=== PATIENT | female | born 1970 | race Caucasian/White ===

== ENCOUNTER 2018-11-02 06:17 | Inpatient (IN) | payer OTHER ==
[2018-10-30 16:06] VITALS: Ht 157.5 cm; Wt 97.7 kg
[2018-11-02] VITALS (29 sets, daily range): BP systolic 89–119; BP diastolic 51–70; PULSE 56–88; RESP 10–34
[~2018-11-02] VITALS: Ht 157.5 cm; Wt 97.7 kg
[~2018-11-02 06:17] MED LIST: CEFAZOLIN 2 GM/50 ML (PMX) 50 ML IVPB SCH
[2018-11-02] MEDS ORDERED: IBUP-1541 PO (07:01)
--- NOTE | 2018-11-02 07:14 | PREOPHP ---
DATE OF ADMISSION: 11/02/2018 The patient is coming for surgery on Friday, the . HISTORY OF PRESENT ILLNESS: This is a 48-year-old female, 0 para 0. The patient was referre d to me due to a consultation for a very large fibroid uterus. The patient had a history of fibroids for a long time and she was having a worsening of her symptoms lately with extreme growth of the fib roid that is up to her navel. The patient is having a history of heavy bleeding, pelvic pain, and ba ck pain. An endometrial biopsy was done and was negative and the patient was referred to me for exci dipika of the large fibroid. The patient was advised for a hysterectomy since she is 48 years old and she is not interested in having children. PAST MEDICAL HISTORY: Unremarkable except for anemia and prediabetes. PAST SURGICAL HISTORY: The patient has no surgical history. ALLERGIES: SHE IS ALLERGIC TO SOME NARCOTICS AND SHE IS NOT SURE WHICH ONE. MEDICATION: The patient is on Motrin. FAMILY HISTORY: There is family history for colon cancer on her brother, hypertension, heart attacks , strokes and diabetes on her family side. REVIEW OF SYSTEMS: There is no cardiovascular history. No lung history. She has no GI or neurologi stanton, orthopedic symptoms, endocrine or neurological symptoms. SOCIAL HISTORY: She smokes a pack a week for the last five years and she drinks occasionally. There is no history of drug addiction. PHYSICAL EXAMINATION: VITAL SIGNS: She is 5 feet 2 inches and she weighs 224 pounds. She has morbid obesity. The blood p ressure is 137/90, pulse 80, respirations 16. HEAD AND NECK: Normal. BREASTS: Soft, nontender, no masses. CHEST: Clear. HEART: Normal sinus rhythm. LUNGS: Clear. ABDOMEN: With the uterus that is at the level of the umbilicus. An MRI done revealed that the uteru s was the growth that she has at the level of the umbilicus and the adnexa were not seen. EXTREMITIES: Normal. GENITOURINARY: The patient had some constipation and she has no urinary incontinence. DIAGNOSES: 1. Intractable pelvic pain. 2. Back pain. 3. Intractable menometrorrhagia. 4. Giant fibroid uterus. 5. Perimenopausal syndrome. PLAN: She is undergoing a hysterectomy, possible bilateral salpingo-oophorectomy only in case of end ometriosis or in case of malignancy. The patient has been advised for this procedure. She has been advised of the possible risks and possible complications of the procedure with her alternatives and o ptions. Written information was provided. She had no more questions and agrees to go ahead with the procedure with full understanding and no more questions. Dictated By: DAVID HUBBARD/BRENDEN Conf#: [id number] DID#: [id number]
--- NOTE | 2018-11-02 07:28 | PREAC ---
Date/Time of Note Date/Time of Note DATE: 11/02/18 TIME: 07:27 Anesthesia Eval and Record Evaluation Time Pre-Procedure Interview DATE: 11/02/18 TIME: 07:27 Age 48 Sex female NPO: 8 hrs Preoperative diagnosis uterine fibroids Planned procedure DAMION Past Medical History Past Medical History: Includes Cardio: Dyslipidemia GI: Morbid obesity Surgery & Anesthesia Issues No known issue Meds Anticoagulation: No Beta Freya within 24 hr: No Reason Beta Freya not given: Pt. not on B-Freya Reported Medications Ibuprofen* (Ibuprofen*) 400 Mg Tablet, 400 MG PO DAILY PRN for PAIN, TAB 11/02/18 Current Medications Cefazolin Sodium/ Dextrose 50 ml @ 100 mls/hr PREOP IVPB ; Start 11/02/18 at 06:00; Stop 11/02/18 at 16:00 Meds reviewed: Yes Allergies Coded Allergies: acetaminophen (Verified Allergy, Unknown, vomiting ,rash, 10/30/18) hydrocodone (Verified Allergy, Unknown, vomiting ,rash, 10/30/18) Allergies Reviewed: Yes Labs/Studies Labs Reviewed: Reviewed by anesthesiologist Blood Bank Test 11/02/18 00:00 Blood Product Summary Counts test: Negative Studies: ECG (NL), CXR (NAPD) Pre-procedure Exam Last vitals Vital Signs Date Temp Pulse Resp B/P (MAP) Pulse Ox O2 O2 Flow FiO2 Time Delivery Rate 11/02/18 97.4 72 20 119/53 97 Room Air 07:25 (75) Airway: Adequate mouth opening, Adequate thyromental dist Mallampati: Mallampati II Teeth: Normal Lung: Normal Heart: Normal ASA Physical Status ASA physical status: 3 Emergency: None Planned Anesthetic General/MAC: ETT Planned Pain Management Parenteral pain med Pre-operative Attestations Prior to commencing anesthesia and surgery, the patient was re-evaluated, there was verification of: *The patient's identity *The results of appropriate recent lab work and preoperative vital signs *The above evaluation not changing prior to induction *Anesthetic plan, risk benefits, alternative and complications discussed with patient/family; questions answered; patient/family understands, accepts and wishes to proceed. Kvng Liao M.D. Nov 02, 2018 07:28
[2018-11-02] MEDS ORDERED: hydrALAzine 20 MG INJ IV PRN ×2 (07:30→10:30)
[2018-11-02] MEDS ORDERED: CEFAZOLIN 1 GM INJ ONE (07:30)
[2018-11-02] MEDS ORDERED: HYDROmorphONE 1 MG/5 ML IV SYRINGE IV PRN ×6 (07:30→10:30)
[2018-11-02] MEDS ORDERED: ALBUTEROL 0.083% (NEB) 2.5 MG/3 ML AMP HHN PRN ×2 (07:30→10:30)
[2018-11-02] MEDS ORDERED: NALOXONE (0.4 MG/ML) INJ IV PRN (07:30)
[2018-11-02] MEDS ORDERED: IPRATROPIUM (NEB) 0.5 MG/2.5 ML AMP HHN PRN ×2 (07:30→10:30)
[2018-11-02] MEDS ORDERED: KETOROLAC 30 MG INJ IV PRN (07:30)
[2018-11-02] MEDS ORDERED: EPHEDrine SULFATE 50 MG/5 ML SYG IV PRN ×2 (07:30→10:30)
[2018-11-02] MEDS ORDERED: LABETALOL HCL 20MG INJ IV PRN ×2 (07:30→10:30)
[2018-11-02] MEDS ORDERED: NALBUPHINE HCL (10 MG/1 ML) INJ IV PRN (07:30)
[2018-11-02] MEDS ORDERED: ROCURONIUM 50 MG INJ ONE (07:30)
[2018-11-02] MEDS ORDERED: TRIMETHOBENZAMIDE 100 MG/ML VIAL IM PRN ×3 (07:30→10:30)
[2018-11-02] MEDS ORDERED: MEPERIDINE 25 MG INJ IV PRN ×2 (07:30→10:30)
[2018-11-02] MEDS ORDERED: GLYCOPYRROLATE 0.4 MG INJ ONE (07:30)
[2018-11-02] MEDS ORDERED: ZOLPIDEM 5 MG TAB PO PRN ×2 (07:30→10:30)
[2018-11-02] MEDS ORDERED: PROPOFOL 20 ML ONE (07:30)
[2018-11-02] MEDS ORDERED: FENTAnyl 50 MCG/ML VIAL IV PRN ×6 (07:30→10:30)
[2018-11-02] MEDS ORDERED: MIDAZOLAM 1 MG/ML 2 ML INJ IV PRN ×2 (07:30→10:30)
[2018-11-02] MEDS ORDERED: morphine 2 MG INJ IV PRN ×2 (07:30)
[2018-11-02] MEDS ORDERED: ONDANSETRON 4 MG INJ IV PRN ×3 (07:30→10:30)
[2018-11-02] MEDS ORDERED: DIPHENHYDRAMINE 50 MG INJ IV PRN ×3 (07:30→10:30)
[2018-11-02] MEDS ORDERED: DEXAMETHASONE 4 MG/ML 5 ML INJ ONE (07:34)
[2018-11-02] MEDS ORDERED: FENTAnyl 50 MCG/ML VIAL ONE (07:34)
[2018-11-02] MEDS ORDERED: ONDANSETRON 4 MG INJ ONE (07:34)
[2018-11-02] MEDS ORDERED: MIDAZOLAM 1 MG/ML 2 ML INJ ONE (07:34)
[2018-11-02] MEDS ORDERED: morphine SULFATE/PF (10 MG/10 ML) INJ ONE (07:34)
[2018-11-02] MEDS ORDERED: SUGAMMADEX SODIUM 200 MG/2 ML VIAL IV ONE (09:46)
--- NOTE | 2018-11-02 10:25 | SIPON ---
Date/Time of Note Date/Time of Note DATE: 11/02/18 TIME: 10:24 Operative Report Preoperative Diagnosis Giant fibroid uterus 20 weeks size Intractable menometrorrhagia and anemia Intractable pelvic pain and back pain Prediabetes Postoperative Diagnosis Same Operation/Procedure Performed DAMION bilateral salpingectomy Surgeon see signature line communication assistant DR ZUNIGA Anesthesia: general Estimated blood loss: 100 - 150 ml's Transfusion Required none Specimen Uterus tubes and cervix Grafts/Implants none Complications none DAVID STRANGE MD Nov 02, 2018 10:25
[2018-11-02] MEDS ORDERED: traMADol 50 MG TAB GTB PRN (10:30)
[2018-11-02] MEDS ORDERED: ONDANSETRON INJ 6 MG in DEXTROSE 5% 50 ML IVPB PRN (10:30)
[2018-11-02] MEDS ORDERED: DIPHENHYDRAMINE 50 MG CAP PO PRN (10:30)
--- NOTE | 2018-11-02 10:37 | PAC ---
Date/Time of Note Date/Time of Note DATE: 11/02/18 TIME: 10:37 Post-Anesthesia Notes Post-Anesthesia Note Last documented vital signs Vital Signs Date Temp Pulse Resp B/P (MAP) Pulse Ox O2 O2 Flow FiO2 Time Delivery Rate 11/02/18 98.8 10:07 11/02/18 72 20 119/53 97 Room Air 07:25 (75) Activity: WNL Respiratory function: WNL Cardiovascular function: WNL Mental status: Baseline Pain reasonably controlled: Yes Hydration appropriate: Yes Nausea/Vomiting absent: Yes Kvng Liao M.D. Nov 02, 2018 10:37
[2018-11-02] MEDS: METOCLOPRAMIDE 10 MG TAB PO SCH ×2 (11:59→18:02)
[2018-11-02] MEDS: KETOROLAC 30 MG INJ IV SCH ×2 (11:59→18:02)
[2018-11-02] MEDS: LACTATED RINGER'S 1,000 ML IV SCH ×2 (12:00→20:11)
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
[2018-11-02] MEDS: CEFAZOLIN 1 GM/50 ML (PMX) 50 ML IVPB SCH ×2 (14:41→21:18)
[2018-11-02] MEDS: ENOXAPARIN 30 MG/0.3 ML SYG SC SCH (21:21)
[2018-11-03] MEDS: LACTATED RINGER'S 1,000 ML IV SCH ×2 (04:18→10:04)
[2018-11-03 04:41] VITALS: BP 92/50; PULSE 69; RESP 18
[2018-11-03] MEDS: CEFAZOLIN 1 GM/50 ML (PMX) 50 ML IVPB SCH (05:34)
[2018-11-03] MEDS: KETOROLAC 30 MG INJ IV SCH ×4 (05:36→17:51)
[2018-11-03] MEDS: METOCLOPRAMIDE 10 MG TAB PO SCH ×5 (05:36→23:09)
[2018-11-03 08:01] VITALS: BP 98/55; PULSE 74; RESP 18
[2018-11-03] MEDS: ENOXAPARIN 30 MG/0.3 ML SYG SC SCH ×2 (11:02→23:09)
--- NOTE | 2018-11-03 11:20 | PN ---
Date/Time of Note Date/Time of Note DATE: 11/03/18 TIME: : Assessment/Plan Lines/Catheters IV Catheter Type (from Nrsg): Peripheral IV Bailey in Place (from Nrsg): Yes Subjective 24 Hr Interval Summary Day 1 post exploratory laparotomy and DAMION BS Patient is up and ambulating Doing really well Passing gases Afebrile, incision dry Patient was explained about her findings and she is very happy with the outcome. Encouraged ambulation Constitutional: no complaints, improved, ambulates, BM, flatus, urine output Feeding: advancing diet Pain Control: mild Detailed Summary Eyes: no complaints ENT: no complaints Respiratory: no complaints Cardiovascular: no complaints Gastrointestinal: no complaints Genitourinary: no complaints Musculoskeletal: no complaints Skin: no complaints Neurologic: no complaints Endocrine: no complaints Lymphatic: no complaints Psychological: no complaints, nl mood/affect Immunologic: no complaints Exam/Review of Systems Vital Signs Vitals Vital Signs Date Temp Pulse Resp B/P (MAP) Pulse Ox O2 O2 Flow FiO2 Time Delivery Rate 11/03/18 98.8 74 18 98/55 (69) 100 08:01 11/02/18 Nasal 2.0 20:00 Cannula Intake and Output 11/02/18 11/02/18 11/03/18 1515:00 23:00 07:00 IntakeIntake Total 3000 ml 1300 ml 1387 ml OutputOutput Total 310 ml 450 ml BalanceBalance 2690 ml 850 ml 1387 ml Exam Constitutional: alert, oriented, well developed Psych: no complaints, nl mood/affect Head: normocephalic, atraumatic Eyes: nl conjunctiva, EOMI, nl lids, nl sclera ENMT: nl external ears & nose, nl lips & teeth, nl nasal mucosa & septum, mucosa pink and moist Neck: supple, non-tender Respiratory: clear to auscultation, normal air movement Cardiovascular: regular rate and rhythm, nl pulses Gastrointestinal: soft, nl liver, spleen, non-tender Musculoskeletal: nl extremities to inspection, nl gait and stance Extremities: normal pulses Neurological: CHECKMAN II-XII intact, nl mental status, nl speech, nl strength Skin: nl turgor, rash or lesions Lymph: nl lymph nodes Results Result Diagram: 11/03/18 0441 11/03/18 044 DAVID STRANGE MD Nov 03, 2018 11:20
[2018-11-03 14:22] VITALS: BP 106/56; PULSE 76; RESP 18
[2018-11-03] MEDS ORDERED: CEPASTAT LOZENGE MT PRN (18:30)
[2018-11-03] MEDS ORDERED: traMADol 50 MG TAB PO PRN ×2 (20:00→22:30)
[2018-11-03] MEDS: oxyCODONE 15 MG TAB PO PRN (20:02)
[2018-11-03 20:30] VITALS: BP 120/60; PULSE 94; RESP 18
[2018-11-04] MEDS: oxyCODONE 15 MG TAB PO PRN ×2 (02:02→08:03)
[2018-11-04 02:35] VITALS: BP 115/59; PULSE 96; RESP 18
[2018-11-04] MEDS: METOCLOPRAMIDE 10 MG TAB PO SCH ×3 (06:00→15:40)
[2018-11-04 07:53] VITALS: BP 104/60; PULSE 105; RESP 18
[2018-11-04] MEDS: ENOXAPARIN 30 MG/0.3 ML SYG SC SCH ×2 (08:19→20:57)
[2018-11-04] MEDS ORDERED: oxyCODONE 15 MG TAB PO PRN (09:00)
[2018-11-04] MEDS ORDERED: BISACODYL (EC) 5 MG TAB PO ONE (09:00)
--- NOTE | 2018-11-04 09:57 | PN ---
Date/Time of Note Date/Time of Note DATE: 11/04/18 TIME: 09:56 Assessment/Plan Lines/Catheters IV Catheter Type (from Nrsg): Saline Lock Bailey in Place (from Nrsg): No Subjective 24 Hr Interval Summary Day 2 post exploratory laparotomy Doing well afebrile With incisional pain Passing gases and tolerating full liquids OxyContin placed in every 5 hours as needed Encouraged ambulation Incision healing well Constitutional: improved Feeding: advancing diet Pain Control: moderate Detailed Summary Eyes: no complaints ENT: no complaints Respiratory: no complaints Cardiovascular: no complaints Gastrointestinal: no complaints Genitourinary: no complaints Musculoskeletal: no complaints Skin: no complaints Neurologic: no complaints Endocrine: no complaints Lymphatic: no complaints Psychological: no complaints, nl mood/affect Immunologic: no complaints Exam/Review of Systems Vital Signs Vitals Vital Signs Date Temp Pulse Resp B/P (MAP) Pulse Ox O2 O2 Flow FiO2 Time Delivery Rate 11/04/18 99.0 105 18 104/60 93 07:53 (75) 11/02/18 Nasal 2.0 20:00 Cannula Intake and Output 11/03/18 11/03/18 11/04/18 1515:00 23:00 07:00 IntakeIntake Total 775 ml 440 ml OutputOutput Total 850 ml BalanceBalance 775 ml -410 ml Exam Constitutional: alert, oriented, well developed Psych: no complaints, nl mood/affect Head: normocephalic, atraumatic Eyes: nl conjunctiva, EOMI, nl lids, nl sclera ENMT: nl external ears & nose, nl lips & teeth, nl nasal mucosa & septum, mucosa pink and moist Neck: supple, non-tender Respiratory: clear to auscultation, normal air movement Cardiovascular: regular rate and rhythm, nl pulses Gastrointestinal: soft, nl liver, spleen, non-tender Musculoskeletal: nl extremities to inspection, nl gait and stance Extremities: normal pulses Neurological: ETL APPLICATION DEVELOPER II-XII intact, nl mental status, nl speech, nl strength Skin: nl turgor, rash or lesions Lymph: nl lymph nodes Results Result Diagram: 11/03/1844011/03/18 044 DAVID STRANGE MD Nov 04, 2018 09:57
[2018-11-04] MEDS: KETOROLAC 30 MG INJ IV PRN ×2 (12:49→18:52)
[2018-11-04] MEDS ORDERED: SOD FERRIC GLUC COMPLX 125 MG in SOD CHLORIDE 0.9% 100 ML IVPB SCH (13:00)
[2018-11-04 13:32] VITALS: BP 104/56; PULSE 99; RESP 18
[2018-11-04 19:15] VITALS: BP 121/68; PULSE 101; RESP 20
[2018-11-05] MEDS: KETOROLAC 30 MG INJ IV PRN ×2 (00:59→07:49)
[2018-11-05 02:05] VITALS: BP 99/54; PULSE 85; RESP 20
[2018-11-05] MEDS: METOCLOPRAMIDE 10 MG TAB PO SCH ×2 (07:49)
[2018-11-05 07:57] VITALS: BP 117/61; PULSE 97; RESP 18
[2018-11-05] MEDS: ENOXAPARIN 30 MG/0.3 ML SYG SC SCH (09:02)
--- NOTE | 2018-11-05 11:00 | PD.PPDC ---
AUTOS DISASSEMBLER Discharge Instruction Condition [id number] Patient Condition: [id number] Good Diet [id number] Diet: Eaeum7e Resume Regular Diet Activity/Restrictions [id number] Activity: [id number] Normal Activity May Shower [id number] Restrictions: Gkwjy1r No Exercising No Lifting No Driving No Sexual Activity Nothing in the Vagina No [place] No Tampons, douche Wound/Drain Care Instructions [id number] Wound/Drain Care Instructions: [id number] Wash with soap and water Keep clean and dry Follow-up Follow-up with Physician: 2, Week/Weeks Return to clinic for [id number] MANAGER PRIMARY CARE Instructions: [id number] Fever greater than 101 Chills Worsening abdominal pain Excessive Vaginal Bleeding More than 2 pads per hour Unable to tolerate diet [id number] Surgical Instructions: [id number] Incisional Drainage Incisional Redness DAVID STRANGE MD Nov 05, 2018 11:00
--- NOTE | 2018-11-05 11:03 | DS ---
Date/Time of Note Date/Time of Note DATE: 11/05/18 TIME: 11:02 Discharge Summary Admission/Discharge Info Admit Date/Time Nov 02, 2018 at 06:17 Discharge Date/Time November 05, 2018 Discharge Diagnosis Giant fibroid uterus Intractable menometrorrhagia and anemia Abdominal back pain Patient Condition: Good Procedures Total abdominal hysterectomy bilateral salpingectomy Hx of Present Illness 48 years old female 0 para 0 History of large giant fibroid uterus that gave her chronic anemia intractable pelvic pain back pain and intractable menometrorrhagia. Patient was advised for a hysterectomy since she is not willing to have a baby at this age. Patient was cleared by general sales manager for the surgery Hospital Course The patient did very well after surgery we did her hysterectomy bilateral salpingectomy without complications and she was up and about immediately the next day. At this time she has been passing gases with a small bowel movement she is tolerating diet and incision is healing well dry with no signs of infection and she is afebrile. She has been advised of what to do and not to do at home She is advised to see me in a week or 10 days or earlier if she has any problem She is very active and ambulating already Her CBC is anemic but she has chronic history of it so she has no symptoms, she is stable to go home. IV iron was given. Home Meds Reported Medications Ibuprofen* (Ibuprofen*) 400 Mg Tablet, 400 MG PO DAILY PRN for PAIN, TAB 11/02/18 Primary Care Provider Not On Staff Doctor Time spent on discharge: < 30 minutes DAVID STRANGE MD Nov 05, 2018 11:03
--- NOTE | 2018-11-06 10:12 | HPN ---
Date/Time of Note Date/Time of Note DATE: 11/06/18 TIME: 10:12 Interval H&P Admission Note Pt. seen H&P reviewed: No system changes DAVID STRANGE MD Nov 06, 2018 10:12
== END 2018-11-05 11:55 | disposition home or self-care (01) | DRG 743 ==
LOC: REC 06:17 → EDSTATUS 07:30 → MS1 11:19
PROVIDERS: ADMIT Obstetrics & Gynecology; ATTEND Obstetrics & Gynecology
PROC: 0UB70ZZ Excision of Bilateral Fallopian Tubes, Open Approach (ICD-10-PCS; 2018-11-02)
PROC: 0UT90ZZ Resection of Uterus, Open Approach (ICD-10-PCS; principal; 2018-11-02 07:30)
DX: D25.9 Leiomyoma of uterus, unspecified (principal); E66.01 Morbid (severe) obesity due to excess calories; D63.8 Anemia in other chronic diseases classified elsewhere; E78.5 Hyperlipidemia, unspecified; F17.200 Nicotine dependence, unspecified, uncomplicated; M54.9 Dorsalgia, unspecified; N92.1 Excessive and frequent menstruation with irregular cycle; R73.03 Prediabetes; Z68.39 Body mass index [BMI] 39.0-39.9, adult; Z71.3 Dietary counseling and surveillance
CPT/HCPCS: 80048; 85025; 86850; 86900; 86901; 86920; 87086; 88305; J0690; J1100; J1170; J1650; J1885; J2250; J2274; J2405; J2916; J3010; J7120